=== PATIENT | male | born 1970 ===

== ENCOUNTER → 2024-01-06 06:55 | Outpatient (REF) | payer OTHER, SELFPAY | LOC: MRI 3T 06:55 | PROVIDERS: FAMILY PHYSICIAN Family Medicine | DX: S13.0XXA Traumatic rupture of cervical intervertebral disc, initial encounter (principal); S23.0 Traumatic rupture of thoracic intervertebral disc; S33.0XXA Traumatic rupture of lumbar intervertebral disc, initial encounter | CPT/HCPCS: 72141; 72146; 72148 ==